=== PATIENT | male | born 1975 | race African-American/Black ===

== ENCOUNTER 2016-12-14 01:16 | Inpatient (IN) | payer OTHER ==
--- NOTE | ~2016-12-14 | PA ---
Unit #: [id number] #: [id number] Patient: BETH MARSHALL [id number] [facility] [address] [place] [address] [id number] I MR#: [id number] NAME: BETH MARSHALL. ROOM: P182 Age: 41 Sex: M Admission Date: 12/14/2016 : 1975 Date of Assessment: 12/14/2016 Attending Physician: Bayron Trotter M.D. Admitting Physician: Bayron Trotter M.D. Primary Care Physician: Hari Li M.D. PSYCHIATRIC ASSESSMENT DATE OF SERVICE 12/14/2016. INFORMANTS The patient reliability, fair; chart reliability, good. CHIEF COMPLAINT Alcohol abuse. HISTORY OF PRESENT ILLNESS Beth Marshall is a 41-year-old male, presented with the above-mentioned complaint. The patient reported lives at home with his . Reported attempted to kill himself on 12/12/2016 by drinking antifreeze. The patient reported he was cleared by [facility]. The patient maintained suicidal ideation with a plan to drink himself to . The patient reported he does not feel safe to return home and stated that he will harm himself. The patient reported that he was also drinking daily, stating that drinking more than 6 pack of beer daily and vodka daily. The patient is unable to quantify the amount of vodka. The patient reported last drink was on 12/12/2016. The patient reported decreased sleep, energy, and appetite, feeling of hopelessness and worthlessness. Needing inpatient admission at this time for psychiatric stabilization. PAST PSYCHIATRIC HISTORY Remarkable for history of outpatient treatment and [facility] level [facility] care at [facility]. FAMILY HISTORY AND SOCIAL HISTORY The patient lives with his , has a good support system. Family history is remarkable for history of substance abuse in both sides of the family. No history of any abuse. MEDICAL HISTORY Remarkable for hypertension and diabetes. Musculoskeletal; muscle strength and tone, no atrophy or abnormal movement. Gait normal. MEDICATION HISTORY None, but metformin a long time back. ALLERGIES No known drug allergies. SUBSTANCE ABUSE HISTORY Unit #: [id number] #: [id number] Patient: BETH MARSHALL The patient reported use of tobacco, age of onset 15; alcohol, age of onset 17, longest period of sobriety 2 days. History of blackout. No history of any HIV, hepatitis, or any IV drugs. History of withdrawal symptoms. Currently reporting depressed mood, headache, restlessness, rhinorrhea, tremors, poor appetite, abdominal cramping, muscle cramping, and diarrhea. MENTAL STATUS EXAMINATION CONSTITUTIONAL: Measurement of vital signs; temperature 98.3, pulse 66, respirations 21, and blood pressure 109/71. Height 6 feet 2 inches and weight 160 pounds. GENERAL APPEARANCE: The patient dressed casually. The patient did not show any facial deformity. MUSCULOSKELETAL: Please see above. PSYCHIATRIC EXAMINATION Description of speech; regular rate, normal volume, normal articulation, coherent, spontaneous. Description of thought process, goal directed. Description of association, intact. Description of abnormal psychotic thinking; the patient denied any hallucination, but reported depression, suicidal ideation, mood lability, substance abuse. Description of the patient's judgment: Concerning everyday activity, poor. Social situation, poor. Concerning psychiatric condition, poor. Complete mental status examination; oriented in time, place, and person. Recent and remote memory, fair. Attention span and concentration, fair. Language; able to name object, repeat phrases. Fund of knowledge; aware of current event, passive vocabulary intact. Mood and affect, sad and dysphoric. Insight and judgment were poor. ASSETS AND LIABILITIES Assets; the patient is articulate, able to take care of his ADL. Liability, history of depression. ADMITTING DIAGNOSES Psychiatric: 1. Major depressive disorder, recurrent, severe, F33.2. 2. Alcohol use disorder, severe, F10.20. Secondary diagnosis: Deferred. Medical diagnoses: Hypertension, diabetes. Stressors: Psychosocial stressors. PSYCHIATRIC PLAN, TREATMENT GOAL, AND DISCHARGE PLAN 1. Advised to admit the patient on the inpatient unit. Provide safe, supportive, and structured environment. 2. Ordered labs; CBC, CMP, UA, and UDS. 3. Medical consultation to evaluate the patient's medical condition for diabetes and treatment. 4. The patient was started on detox protocol and detox monitoring. If needed, consider further adjustment of medication. Advised Celexa 20 mg daily for depression and Desyrel 50 mg at bedtime for sleep. 5. Treatment goal is to attain euthymic mood, gain insight into his problem, and learn coping skills. 6. Discharge plan: Plan is to stabilize the patient and consider followup in outpatient program. Unit #: [id number] #: [id number] Patient: BETH MARSHALL ESTIMATED LENGTH OF STAY 5 days. Dictated by... Jose Manuel Kelly/jacinda TD: 12/14/2016 17:49 JOB #: [id number] PSYCHIATRIC ASSESSMENT Page 1 of 1 X Bayron Trotter MD PSYCHIATRIC ASSESSMENT
--- NOTE | ~2016-12-14 | CO ---
Unit #: [id number] #: [id number] Patient: BETH BASS [id number] [place] [address] [id number] I MR#: [id number] NAME: BETH BASS ROOM: P182 Age: 41 Sex: M Admission Date: 12/14/2016 : 1975 Attending Physician: Bayron Trotter M.D. Primary Care Physician: Hari Li M.D. Consultation Date: 12/14/2016 CONSULTATION REPORT SUBJECTIVE Beth is a 41-year-old male with a history of alcohol abuse and diabetes mellitus. He is noncompliant with any kind of diabetic medication. We have been asked to assess and treat. The patient was seen for his admission H and P on 12/14/2016. His diabetes and treatment of this was outlined. Please see H and P dated 12/14/2016. Since that time, we have continued to monitor his blood sugars and based on those, we increased his Levemir to 18 units subcu q.h.s. We will continue to monitor Accu-Cheks and provide sliding scale as indicated. Dictated by... Lora Braga P.A.-C. for Jose Manuel Jenkins/jacinda TD: 12/18/2016 02:41 JOB #: [id number] CONSULTATION REPORT Page 1 of 1 X Lora Braga CONSULTATION REPORT
--- NOTE | ~2016-12-14 | DS ---
Unit #: [id number] #: [id number] Patient: BETH BASS [id number] [facility] [address] [place] [address] [id number] I MR#: [id number] NAME: BETH BASS. ROOM: P182 Age: 41 Sex: M Admission Date: 12/14/2016 : 1975 Discharge Date: 12/17/2016 Attending Physician: Bayron Trotter M.D. Primary Care Physician: Hari Li M.D. DISCHARGE SUMMARY REASON FOR ADMISSION Depression. DIAGNOSTIC STUDIES LABORATORY RESULTS: Unremarkable. HOSPITAL COURSE The patient was admitted to inpatient unit on 12/14/2016 and discharged on 12/17/2016. The patient was treated with behavior management, chemical dependency group, expressive therapy, and psychoeducation. The patient requested for discharge. The patient reported that he is not suicidal or homicidal, would like to follow up on the outpatient basis. The patient was subsequently discharged with a plan to follow up in outpatient program. DISCHARGE MEDICATIONS NovoLog t.i.d. for diabetes, Celexa 20 mg daily for depression, Levemir for diabetes, and Remeron 15 mg at bedtime for sleep. DISCHARGE DIAGNOSES Psychiatric: 1. Major depressive disorder, recurrent, severe, F33.2. 2. Alcohol use disorder, severe, F10.20. Secondary diagnosis: Deferred. Medical diagnoses: Hypertension, diabetes. Stressors: Psychosocial stressors. DISCHARGE INSTRUCTIONS The patient is to follow up in outpatient clinic as per marriage and family social worker. CONDITION ON DISCHARGE The patient was pleasant and cooperative. Denied any psychotic symptom or any suicidal ideation. PROGNOSIS Guarded. DIET AND ACTIVITY As tolerated. Dictated by... Unit #: [id number] #: [id number] Patient: BETH BASS Jose Manuel Kelly/jacinda TD: 12/17/2016 20:09 JOB #: [id number] DISCHARGE SUMMARY Page 1 of 1 X Bayron Trotter MD X DISCHARGE SUMMARY
--- NOTE | ~2016-12-14 | PN ---
Unit #: [id number] #: [id number] Patient: BETH MARSHALL [id number] [facility] [address] [place] [address] [id number] I MR#: [id number] NAME: BETH MARSHALL. ROOM: P182 Age: 41 Sex: M Admission Date: 12/14/2016 : 1975 Attending Physician: Bayron Trotter M.D. Admitting Physician: Bayron Trotter M.D. Primary Care Physician: Jose Manuel Sharma PROGRESS NOTES DATE OF SERVICE 12/15/2016 DISCUSSION Beth Marshall is a 41-year-old male seen on 12/15/2016. The patient interviewed, chart reviewed. Obtained information from nursing staff. The patient complaining of not sleeping good. Feeling sad, depressed. Feeling hopeless. The patient withdrawn, isolative, guarded, but pleasant, cooperative. Complete Review of Systems: Unremarkable. MENTAL STATUS EXAMINATION General Appearance: The patient dressed casually. Attention span, concentration: Fair. Oriented in place and person. Mood and affect labile. Speech: Monotone. Thought process: Norman. The patient reported having suicidal ideation. Denied any plan. Guarded, withdrawn, isolative. Recent and remote memory: Poor. Insight and judgment: Poor. DIAGNOSIS Mood disorder not otherwise specified. ASSESSMENT/PLAN Advised to continue with current medication and therapeutic protocol. If needed, consider further adjustment of medication. In the meantime, we will continue with the inpatient treatment. Dictated by... Jose Manuel Kelly/conrado TD: 12/18/2016 11:59 JOB #: [id number] Unit #: [id number] #: [id number] Patient: BETH MARSHALLPEREZ PROGRESS NOTES Page 1 of 1 X Bayron Trotter MD X PROGRESS NOTE
--- NOTE | ~2016-12-14 | HP ---
Unit #: [id number] #: [id number] Patient: BETH BASS [id number] [place] [address] [id number] I MR#: [id number] NAME: BETH BASS. ROOM: P182 Age: 41 Sex: M Admission Date: 12/14/2016 : 1975 Attending Physician: Bayron Trotter M.D. Admitting Physician: Bayron Trotter M.D. Primary Care Physician: Hari Li M.D. HISTORY AND PHYSICAL HISTORY OF PRESENT ILLNESS Beth is a 41 year old admitted to [facility] because of his abuse of alcohol. PAST MEDICAL HISTORY 1. Long history of alcohol abuse. 2. History of withdrawal seizures. 3. High blood pressure. 4. Diabetes mellitus. PAST SURGICAL HISTORY Nothing reported. ALLERGIES No known drug allergies. SOCIAL HISTORY Smokes 1 pack per day. Drinks a fifth of liquor on a daily basis. Denies illicit drug use. FAMILY HISTORY Medically noncontributory. REVIEW OF SYSTEMS CONSTITUTIONAL: No fever or chills. HEENT: Denies any sore throat, ear pain or runny nose. CARDIOVASCULAR: Denies chest pain, irregular heart rhythm or palpitations. CHEST: Denies shortness of breath or cough. No hemoptysis. GASTROINTESTINAL: Denies nausea, vomiting, diarrhea or chronic constipation. ENDOCRINE: Denies history of increased thirst or urination. No recent significant weight loss or gain. GENITOURINARY: Denies dysuria, frequency, or hematuria. SKIN: Denies any rashes. HEMATOLOGIC: Denies history of increased bleeding or bruising. MUSCULOSKELETAL: Denies any hot, swollen joints. No generalized muscle pain. NEUROLOGIC: Denies problems with vision or speech. No frequent, severe headaches. No numbness, tingling or weakness in any extremities. Denies loss of bladder or bowel control. CURRENT MEDICATIONS 1. Detox protocol. 2. Desyrel 50 mg q.h.s. Unit #: [id number] #: [id number] Patient: BETH BASS 3. Celexa 20 mg q.h.s. 4. Nicotine patch 14 mg daily. 5. Levemir 15 units q.h.s. (this was added at time of admission). PHYSICAL EXAMINATION GENERAL: Alert, well-nourished, no apparent distress. VITAL SIGNS: Blood pressure 110/70, heart rate 80, respirations 16, temperature 98.6. WEIGHT: 160. HEIGHT: 6 feet 2 inches. SKIN: Warm and dry without rash or lesion. HEENT: Normocephalic. TMs not viewed. Oral and nasal passages clear. Conjunctivae clear. PERRLA. EOMs intact. NECK: Supple without lymphadenopathy or thyromegaly. HEART: Regular rate and rhythm without murmur. LUNGS: Clear. ABDOMEN: Soft, nontender. : Not done. EXTREMITIES: No evidence of cyanosis, clubbing or edema. Moves all without focal deficit. NEUROLOGICAL: Grossly within normal limits. Cranial Nerves: II: Visual bingham are intact. III, IV AND : Extraocular movements are intact. Pupils are equal, round and reactive to light. V: Facial sensation is grossly normal. VII: Facial movements and expression are normal. VIII: Auditory acuity grossly intact. IX, X: Uvula is midline. Phonation is normal. XI: Patient shrugs shoulders and turns head normally. XII: Tongue protrudes in the midline. Sensory and Motor Function: Sensory and motor sensation is grossly normal. Motor: moves all extremities well. Coordination: Gait is normal. Deep Tendon Reflexes: Intact. IMPRESSION Psychiatric admission. RECOMMENDATIONS PSYCHIATRIC: Per psychiatrist. MEDICAL: 1. See no contraindication to participate in facility's activities. 2. Detox per protocol. 3. Monitor Accu-Cheks a.c. and h.s. Continue Levemir 15 units q.h.s and sliding scale. MEDICAL PROGNOSIS Good. MEDICAL CONDITION Stable. Dictated by... Lroa Braga P.A.-C. for Jose Manuel Jenkins/alis Unit #: [id number] #: [id number] Patient: BETH BASS TD: 12/14/2016 20:33 JOB #: [id number] HISTORY AND PHYSICAL Page 1 of 1 X Lora Braga HISTORY AND PHYSICAL
--- NOTE | ~2016-12-14 | PN ---
Unit #: [id number] #: [id number] Patient: BETH MARSHALL [id number] [facility] [address] [place] [address] [id number] I MR#: [id number] NAME: BETH MARSHALL. ROOM: P182 Age: 41 Sex: M Admission Date: 12/14/2016 : 1975 Attending Physician: Bayron Trotter M.D. Admitting Physician: Bayron Trotter M.D. Primary Care Physician: Jose Manuel Sharma PROGRESS NOTES DATE OF SERVICE: 12/16/2016 DISCUSSION Mr. Beth Marshall is a 41-year-old male, seen on 12/16/2016. The patient continues to report feeling sad, depressed, having suicidal ideation, poor sleep, isolative, guarded, flat affect, and poor hygiene and grooming. REVIEW OF SYSTEMS Complete review of systems unremarkable. MENTAL STATUS EXAMINATION General appearance, the patient dressed casually. Hygiene and grooming, poor. Attention span and concentration, poor. Oriented in place and person. Mood and affect, sad and depressed. Speech, monotone. Thought process, concrete. The patient reported having suicidal ideation. Denied any homicidal ideation or psychotic symptom. Recent and remote memory, poor. Insight and judgment, poor. DIAGNOSIS Mood disorder, not otherwise specified. ASSESSMENT AND PLAN Advised to continue with current medication with a plan to add Remeron 15 mg at bedtime for sleep and mood symptoms. If needed, consider further adjustment of medication. Dictated by... Jose Manuel Kelly/jacinda TD: 12/17/2016 14:39 JOB #: [id number] Unit #: [id number] #: [id number] Patient: BETH MARSHALL BLANQUITA PROGRESS NOTES Page 1 of 1 X Bayron Trotter MD PROGRESS NOTE
[2016-12-14 12:42] LABS: BASOPHIL% 0.5 % (0-2.5); EOSINOPHIL% 0.4 % (0.0-7.0); HEMATOCRIT 42.9 % (38.0-50.0); HEMOGLOBIN 13.7 gm/dL (13.0-16.0); LYMPHOCYTE# 1.2 X10e3 (1.0-3.5); LYMPHOCYTE% 13.6 % (17.0-45.0); MEAN CORPUSCULAR HEMOGLOBIN 31.3 PG (28-34); MEAN CORPUSCULAR HGB CONC 31.9 g/dL (30-36); MONOCYTE# 0.6 X10e3 (0-1.0); MONOCYTE% 7.5 % (3.0-12.0); NEUTROPHIL# 6.7 X10e3 (1.5-7.1); PLATELET COUNT 231 X10e3 (140-420); RED BLOOD COUNT 4.37 X10e (3.90-5.60); RED CELL DISTRIBUTION WIDTH 14.2 % (11.0-15.5); WHITE BLOOD COUNT 8.6 X10e3 (4.0-10.5)
[2016-12-14 12:45] LABS: DIFF IND NO
[2016-12-14 13:02] LABS: THYROID STIMULATING HORMONE 1.63 uIU/ml (0.34-5.60)
[2016-12-14 13:03] LABS: ALBUMIN SERUM 4.2 g/dL (3.5-5.0); BILIRUBIN,TOTAL 0.7 mg/dL (0.2-2.0); BUN/CREATININE RATIO 7.77; CALCIUM SERUM 9.7 mg/dL (8.4-10.2); CREATININE SERUM 0.9 mg/dL (0.6-1.4); GLOM FILT RATE Estimated 121.7 mL/min (>60); POTASSIUM 4.3 mmol/L (3.5-5.1); PROTEIN TOTAL SERUM 7.4 g/dL (6.0-8.3)
[2016-12-14 13:09] LABS: FREE THYROXIN (T4) 0.52 ng/dL (0.58-1.64)
[2016-12-17 10:08] LABS: URINE APPEARANCE CLEAR; URINE BILIRUBIN NEG (NEG); URINE BLOOD NEG (NEG); URINE COLOR DK YELLOW; URINE GLUCOSE >1000 MG/DL (NEG); URINE KETONE NEG (NEG); URINE LEUKOCYTE ESTERASE NEG (NEG); URINE NITRATE NEG (NEG); URINE PROTEIN NEG (NEG); URINE SPECIFIC GRAVITY 1.021 (1.003-1.035); URINE UROBILINOGEN 0.2 MG/DL (NEG)
[2016-12-17 10:24] LABS: AMPHETAMINE NEG (NEG); BARBITURATES NEG (NEG); BENZODIAZEPINES POS (NEG); COCAINE NEG (NEG); MARIJUANA NEG (NEG); OPIATES NEG (NEG); TRICYCLIC ANTIDEPRESSANTS NEG (NEG); U METHADONE NEG (NEG)
== END 2016-12-17 13:14 | disposition home or self-care (01) | DRG 885 ==
LOC: P1E 01:16
PROVIDERS: Psychiatry & Neurology Psychiatry
PROC: HZ2ZZZZ Detoxification Services for Substance Abuse Treatment (ICD-10-PCS; principal; 2016-12-14)
DX: F33.2 Major depressive disorder, recurrent severe without psychotic features (principal); E11.9 Type 2 diabetes mellitus without complications; R45.851 Suicidal ideations; F10.20 Alcohol dependence, uncomplicated; I10 Essential (primary) hypertension; F17.210 Nicotine dependence, cigarettes, uncomplicated; F39 Unspecified mood [affective] disorder; Z91.14 Patient's other noncompliance with medication regimen
CPT/HCPCS: 80053; 80307; 81003; 82947; 84439; 84443; 85025; 86592

== ENCOUNTER 2016-12-29 17:48 | Inpatient (IN) | payer OTHER ==
--- NOTE | ~2016-12-29 | HP ---
Unit #: [id number] #: [id number] Patient: BETH BASS [id number] [facility] [address] [place] [address] [id number] I MR#: [id number] NAME: BETH BASS. ROOM: P207 Age: 41 Sex: M Admission Date: 12/29/2016 : 1975 Attending Physician: Bayron Trotter M.D. Admitting Physician: Bayron Trotter M.D. Primary Care Physician: Hari Li M.D. HISTORY AND PHYSICAL DATE 12/29/2016 HISTORY OF PRESENT ILLNESS The patient is a 41 year old admitted to [address] [place] [address] because of continued abuse of alcohol. He was recently discharged from this facility after treatment for the same. The patient was seen and H and P dated 12/14/2016 was reviewed. This is current. No changes. Please see H and P dated 12/14/2016. Dictated by... Irwin BlevinsAElizabeth. for Jose Manuel Jenkins/conrado TD: 12/30/2016 06:47 JOB #: [id number] HISTORY AND PHYSICAL Page 1 of 1 X Lora Braga HISTORY AND PHYSICAL
--- NOTE | ~2016-12-29 | PN ---
Unit #: [id number] #: [id number] Patient: FRANCISCO MARSHALL [id number] [facility] [address] [place] [address] [id number] MR#: [id number] NAME: FRANCISCO MARSHALL. ROOM: P207 Age: 41 Sex: M Admission Date: 12/29/2016 : 1975 Attending Physician: Bayron Trotter M.D. Admitting Physician: Bayron Trotter M.D. Primary Care Physician: Jose Manuel Sharma PROGRESS NOTES DATE 12/30/2016 DISCUSSION Francisco Marshall is a 41-year-old male seen on 12/30/2016. Patient interviewed, chart reviewed, obtained information from the nursing staff. The patient was compliant, cooperative, withdrawn, isolative. Complete review of systems unremarkable. MENTAL STATUS EXAMINATION General appearance: Patient is dressed casually. Attention span and concentration fair. Oriented in time, place and person. Mood and affect sad and depressed. Speech monotone. Thought process concrete. Patient denied any thoughts of harming self or others. Recent and remote memory poor. Insight and judgement poor. DIAGNOSIS 1. Alcohol use disorder severe. 2. Mood disorder NOS. ASSESSMENT AND PLAN Advise to continue with Seroquel, Glucophage, Abilify. Will closely monitor patient's mood and behavior. If needed, consider further adjustment of medication. Dictated by... Jose Manuel Kelly TD: 12/31/2016 08:08 JOB #: [id number] Unit #: [id number] #: [id number] Patient: FRANCISCO MARSHALL PROGRESS NOTES Page 1 of 1 X Bayron Trotter MD PROGRESS NOTE
--- NOTE | ~2016-12-29 | DS ---
Unit #: [id number] #: [id number] Patient: BETH BASS [id number] [facility] [address] [place] [address] [id number] I MR#: [id number] NAME: BETH BASS. ROOM: P207 Age: 41 Sex: M Admission Date: 12/29/2016 : 1975 Discharge Date: 12/31/2016 Attending Physician: Bayron Trotter M.D. Primary Care Physician: Hari Li M.D. DISCHARGE SUMMARY REASON FOR ADMISSION Substance abuse withdrawal. DIAGNOSTIC STUDIES LABORATORY RESULTS: Unremarkable. HOSPITAL COURSE The patient was admitted to inpatient unit on 12/29/2016 and discharged on 12/31/2016. The patient was treated with expressive therapy, psychoeducation, structured milieu, chemical dependency group, detox protocol. The patient responded well with the above modalities of treatment. Subsequently, the patient was discharged with a plan to follow up in outpatient program. DISCHARGE MEDICATIONS Amaryl 4 mg once daily before breakfast for high glucose, Glucophage 1000 mg b.i.d. for diabetes, Abilify 5 mg daily for mood stabilization, Seroquel 100 mg daily for mood stabilization. DISCHARGE DIAGNOSES Psychiatric: 1. Major depressive disorder, recurrent, F33.2. 2. Alcohol use disorder, severe, F10.20. 3. Cannabis abuse, moderate, F12.20. 4. Opioid use disorder, moderate. Secondary diagnosis: Deferred. Medical diagnoses: Hypertension and diabetes. Stressors: Psychosocial stressor. DISCHARGE INSTRUCTIONS The patient to follow up in outpatient clinic as per director of social media marketing. CONDITION ON DISCHARGE The patient was pleasant and cooperative. Denied any psychotic symptom or any suicidal ideation. PROGNOSIS Guarded. DIET AND ACTIVITY As tolerated. Unit #: [id number] #: [id number] Patient: BETH BASS Dictated by... Bayron Trotter M.D. SZC/modl TD: 12/31/2016 23:46 JOB #: [id number] DISCHARGE SUMMARY Page 1 of 1 X Bayron Trotter MD X DISCHARGE SUMMARY
--- NOTE | ~2016-12-29 | PA ---
Unit #: [id number] #: [id number] Patient: BETH MARSHALL [id number] [facility] [address] [place] [address] [id number] MR#: [id number] NAME: BETH MARSHALL. ROOM: P207 Age: 41 Sex: M Admission Date: 12/29/2016 : 1975 Date of Assessment: Attending Physician: Bayron Trotter M.D. Admitting Physician: Bayron Trotter M.D. Primary Care Physician: Hari Li M.D. PSYCHIATRIC ASSESSMENT INFORMANTS The patient reliability, fair informant and chart reliability, good. CHIEF COMPLAINT Depression and cannabis abuse. HISTORY OF PRESENT ILLNESS Mr. Beth Marshall is a 41-year-old male, well known to us from his previous admission, presented with suicidal ideation with a plan to walk into traffic. The patient reported feeling of hopelessness and worthlessness regarding unemployment and relationship problems. The patient reported abusing alcohol, heroin, methamphetamine, and marijuana. The patient denied any homicidal ideation or psychotic symptoms. The patient unable to contract for safety. Needing admission inpatient for psychiatric stabilization. The patient reported tobacco use, age of onset 15; alcohol, age of onset 17; marijuana, age of onset 15; opioid, age of onset 41; and amphetamine, age of onset 41. Longest period of sobriety days, last sobriety unknown. The patient denied any IV drug use. Reported tremors, poor appetite, sleep problem, abdominal cramping, muscle cramping, and diaphoresis. PAST PSYCHIATRIC HISTORY Remarkable for history of previous treatment at [facility], 07/2016, and 09/2012. FAMILY HISTORY AND SOCIAL HISTORY The patient has a poor support system. Family history is remarkable for history of substance abuse in both sides of the family. No history of any abuse. MEDICAL HISTORY Remarkable for hypertension and diabetes. Musculoskeletal; muscle strength and tone, no atrophy or abnormal movement. Gait normal. MEDICATION HISTORY None. ALLERGIES No known drug allergies. SUBSTANCE ABUSE HISTORY Please see above. Unit #: [id number] #: [id number] Patient: BETH MARSHALL REVIEW OF SYSTEMS HEENT: Eyes, clear. Ears, nose, mouth, and throat; clear. CARDIOVASCULAR: Unremarkable. RESPIRATORY: Unremarkable. GI: Unremarkable. : Unremarkable. SKIN: Unremarkable. LYMPH NODE: Unremarkable. NEUROLOGIC: Unremarkable. ENDOCRINE: Unremarkable. HEMATOLOGIC: Unremarkable. ALLERGIC/IMMUNOLOGIC: Unremarkable. MUSCULOSKELETAL: Muscle strength and tone, no atrophy or abnormal movement. Gait normal. MENTAL STATUS EXAMINATION CONSTITUTIONAL: Measurement of vital signs; temperature 98.6, heart rate 72, respiratory rate 17, and blood pressure 109/74. Height 6 feet 2 inches and weight 170 pounds. GENERAL APPEARANCE: The patient dressed casually. The patient did not show any facial deformity. MUSCULOSKELETAL: Please see above. PSYCHIATRIC EXAMINATION Description of speech, regular rate. Description of thought process, goal directed. Description of association, intact. Description of abnormal psychotic thinking; the patient denied any hallucination or delusions, but feeling sad, depressed, and substance abuse. Description of the patient's judgment: Concerning everyday activity, poor. Social situation, poor. Concerning psychiatric condition, poor. Complete mental status examination; oriented in time, place, and person. Recent and remote memory, poor. Attention span and concentration, poor. Vocabulary, poor. Mood and affect, sad and dysphoric. Insight and judgment, fair to poor. ASSETS AND LIABILITIES Assets, the patient is articulate and able to take care of his ADL. Liability, history of substance abuse and depression. ADMITTING DIAGNOSES Psychiatric: Major depressive disorder, recurrent, F33.2; alcohol use disorder, severe, F10.20; cannabis abuse, moderate, F12.20; and opioid use disorder, moderate. Secondary diagnosis: Deferred. Medical diagnoses: Hypertension and diabetes. Stressors: Psychosocial stressors. PSYCHIATRIC PLAN AND TREATMENT GOAL AND DISCHARGE PLAN 1. Advised to admit the patient on the inpatient unit. Provide safe, supportive, and structured environment. 2. Ordered labs; CBC, CMP, UA, and UDS. 3. Precaution for self-harm, detox protocol, and detox monitoring. The patient to attend all the programing on the inpatient unit. Resume the patient's home medication. If needed, make further adjustment of Unit #: [id number] #: [id number] Patient: BETH MARSHALL medication. TREATMENT GOAL To attain euthymic mood, gain insight into his problem, and learn coping skills. DISCHARGE PLAN Plan to stabilize the patient and consider followup in outpatient program. ESTIMATED LENGTH OF STAY 5 days. Dictated by... Jose Manuel Kelly/jacinda TD: 12/30/2016 20:42 JOB #: [id number] PSYCHIATRIC ASSESSMENT Page 1 of 1 X Bayron Trotter MD PSYCHIATRIC ASSESSMENT
[2016-12-30 09:45] LABS: BASOPHIL% 0.7 % (0-2.5); EOSINOPHIL# 0.1 X10e3 (0-0.7); EOSINOPHIL% 1.5 % (0.0-7.0); HEMATOCRIT 39.4 % (38.0-50.0); LYMPHOCYTE# 1.6 X10e3 (1.0-3.5); LYMPHOCYTE% 24.2 % (17.0-45.0); MEAN CELL VOLUME 96.1 FL (83-96); MEAN CORPUSCULAR HEMOGLOBIN 31.6 PG (28-34); MEAN CORPUSCULAR HGB CONC 32.9 g/dL (30-36); MEAN PLATELET VOLUME 8.8 FL (6.5-11.5); MONOCYTE# 0.5 X10e3 (0-1.0); MONOCYTE% 7.8 % (3.0-12.0); NEUTROPHIL# 4.3 X10e3 (1.5-7.1); NEUTROPHIL% 65.8 % (40-75); PLATELET COUNT 194 X10e3 (140-420); RED CELL DISTRIBUTION WIDTH 14.1 % (11.0-15.5); WHITE BLOOD COUNT 6.6 X10e3 (4.0-10.5)
[2016-12-30 09:50] LABS: DIFF IND NO
[2016-12-30 09:58] LABS: ALBUMIN SERUM 3.6 g/dL (3.5-5.0); BILIRUBIN,TOTAL 0.7 mg/dL (0.2-2.0); CALCIUM SERUM 8.7 mg/dL (8.4-10.2); GLOM FILT RATE Estimated 107.1 mL/min (>60); POTASSIUM 3.8 mmol/L (3.5-5.1); PROTEIN TOTAL SERUM 6.2 g/dL (6.0-8.3)
[2016-12-31 12:37] LABS: URINE APPEARANCE CLEAR; URINE BILIRUBIN NEG (NEG); URINE BLOOD NEG (NEG); URINE COLOR DK YELLOW; URINE GLUCOSE NEG (NEG); URINE KETONE NEG (NEG); URINE LEUKOCYTE ESTERASE NEG (NEG); URINE NITRATE NEG (NEG); URINE PROTEIN NEG (NEG); URINE SPECIFIC GRAVITY 1.012 (1.003-1.035); URINE UROBILINOGEN 0.2 MG/DL (NEG)
[2016-12-31 12:55] LABS: AMPHETAMINE NEG (NEG); BARBITURATES NEG (NEG); BENZODIAZEPINES NEG (NEG); COCAINE NEG (NEG); MARIJUANA NEG (NEG); OPIATES NEG (NEG); TRICYCLIC ANTIDEPRESSANTS NEG (NEG); U METHADONE NEG (NEG)
== END 2016-12-31 14:50 | DRG 885 ==
LOC: P2S 17:48
PROVIDERS: Psychiatry & Neurology Psychiatry
PROC: HZ2ZZZZ Detoxification Services for Substance Abuse Treatment (ICD-10-PCS; principal; 2016-12-29)
DX: F33.9 Major depressive disorder, recurrent, unspecified (principal); F11.20 Opioid dependence, uncomplicated; I10 Essential (primary) hypertension; F10.20 Alcohol dependence, uncomplicated; F12.20 Cannabis dependence, uncomplicated; E11.9 Type 2 diabetes mellitus without complications; F39 Unspecified mood [affective] disorder
CPT/HCPCS: 80053; 80307; 81003; 82947; 85025; 86592; 87806